=== PATIENT | female | born 1945 | race Caucasian/White ===

== ENCOUNTER 2017-09-29 19:43 | Inpatient (IN) | payer MEDICARE, OTHER ==
[2017-09-29] MEDS ORDERED: MORPHINE SULFATE 2 MG/ML SYRINGE IVP STA ×2 (19:53→22:09)
[2017-09-29] MEDS ORDERED: SODIUM CHLORIDE 0.9% 1,000 ML IV STA ×2 (19:53)
[2017-09-29 20:26] LABS: HCT 31.3 % (34.0-46.0); HGB 10.3 gm/dL (11.4-16.0); MCH 30.6 pg (25.0-35.0); MCV 92.7 fL (80.0-100.0); Mean Platelet Volume 8.7; RBC 3.38 m/uL (3.80-5.40); WBC 13.4 k/uL (3.8-10.6)
--- NOTE | 2017-09-29 20:39 | XR ---
EXAMINATION TYPE: XR chest 2V DATE OF EXAM: 09/29/2017 COMPARISON: NONE HISTORY: Chest pain TECHNIQUE: Frontal and lateral views of the chest are obtained. FINDINGS: There is no heart failure nor confluent pneumonic infiltrate. There is pulmonary hyperinfl ation and flattening of the diaphragm. There are chest leads. Costophrenic angles are clear. IMPRESSION: No active cardiopulmonary disease. There is probably some COPD. Normal heart.
[2017-09-29 20:42] LABS: D-Dimer 0.37 mg/L FEU (<0.60); Partial Thromboplastin Time 22.3 sec (22.0-30.0); Prothrombin Time 9.7 sec (9.0-12.0)
[2017-09-29 20:43] LABS: ALT 82 U/L (9-52); AST 65 U/L (14-36); Albumin 4.2 g/dL (3.5-5.0); Alkaline Phosphatase 67 U/L (38-126); Anion Gap 11 mmol/L; Blood Urea Nitrogen 16 mg/dL (7-17); Calcium 9.3 mg/dL (8.4-10.2); Carbon Dioxide 22 mmol/L (22-30); Chloride 99 mmol/L (98-107); Creatine Kinase 65 U/L (30-135); Glucose 104 mg/dL (74-99); Magnesium 1.8 mg/dL (1.6-2.3); Potassium 4.4 mmol/L (3.5-5.1); Sodium 132 mmol/L (137-145); Total Bilirubin 0.5 mg/dL (0.2-1.3); Total Protein 6.3 g/dL (6.3-8.2)
[2017-09-29 20:54] LABS: Creatine Kinase MB 1.5 ng/mL (0.0-2.4); Troponin I <0.012 ng/mL (0.000-0.034)
--- NOTE | 2017-09-29 21:56 | ED ---
Chest Pain HPI - General Chief Complaint: Chest Pain Stated Complaint: Chest Pain Time Seen by Provider: 09/29/17 19:45 Source: patient Mode of arrival: EMS - History of Present Illness Initial Comments: 72 years old and is boric had a pain in her right arm pain traveled from right to the left arm morphine she has a no compromise in the motor function or sensory function seems it's side deep sort of discomfort she is concerned about her heart and also travels down towards the back, she does have a history of lymphoma she was seen by Dr. Singer and then numb she was seen her car monocytes in [place] she broke out in cold sweats when she felt she was short winded and now I deep breaths caused her quite a bit of discomfort it started about 5:30 PM. Denies any headaches no neck stiffness no weakness of the arms or the legs consistent with the CVA no sensory deficits noted abdominal pain no frequency urgency dysuria - Related Data Home Medications Medication Instructions Recorded Confirmed ALPRAZolam [Xanax] 0.25 mg PO HS PRN 09/29/17 09/29/17 Atenolol [Tenormin] 12.5 mg PO QAM 09/29/17 09/29/17 Cetirizine HCl [Zyrtec] 20 mg PO DAILY 09/29/17 09/29/17 Ibrutinib/Placebo 140mg/0mg 4 cap PO DAILY 09/29/17 09/29/17 Loperamide HCl [Imodium A-D] 2 mg PO QAM 09/29/17 09/29/17 Melatonin 5 mg PO HS PRN 09/29/17 09/29/17 Multivitamins, Thera [Multivitamin 1 tab PO DAILY 09/29/17 09/29/17 (formulary)] PARoxetine [Paxil] 10 mg PO HS 09/29/17 09/29/17 [place]'s Wort 150 mg PO DAILY 09/29/17 09/29/17 Zolpidem [Ambien] 5 mg PO HS 09/29/17 09/29/17 diphenhydrAMINE HCL [Benadryl] 25 - 50 mg PO HS PRN 09/29/17 09/29/17 hydrOXYzine HCL 10 mg PO HS 09/29/17 09/29/17 Allergies Allergy/AdvReac Type Severity Reaction Status Date / Time latex Allergy Severe Swelling Verified 09/29/17 20:51 Review of Systems ROS Statement: Those systems with pertinent positive or pertinent negative responses have been documented in the HPI. ROS Other: All systems not noted in ROS Statement are negative. EKG Findings - EKG Comments: EKG Findings:: EKG is normal sinus ventricular rate is 84 NH interval is 128 QRS duration is 100 QT/QTc is 376/444 review of this EKG does not reveal any ST elevation or ST depression Past Medical History Additional Past Medical History / Comment(s): lymphoma Past Psychological History: No Psychological Hx Reported General Exam - General Exam Comments Initial Comments: General: The patient is awake and alert, in no distress, and does not appear acutely ill. Skin: Skin is warm and dry and no rashes or lesions are noted. Eye: Pupils are equal, round and reactive to light, extra-ocular movements are intact; there is normal conjunctiva bilaterally. Ears, nose, mouth and throat: There are moist mucous membranes and no oral lesions. Neck: The neck is supple, there is no tenderness or JVD. Cardiovascular: There is a regular rate and rhythm. No murmur, rub or gallop is appreciated. Respiratory: To auscultation bilateral, no wheezing no rhonchi no distress respiratory whelan noticed Gastrointestinal: Soft, non-distended, non-tender abdomen without masses or organomegaly noted. There is no rebound or guarding present. Bowel sounds are unremarkable. Back: There is no tenderness to palpation in the midline. There is no obvious deformity. Musculoskeletal: Normal ROM, no tenderness, There is no pedal edema. There is no calf tenderness or swelling. No cords were appreciated. No focal deficit noticed at all Neurological: CN II-XII intact, Cranial nerves III through XII are intact. There are no obvious motor or sensory deficits. Coordination appears grossly intact. Speech is normal. Psychiatric: Cooperative, appropriate mood & affect, normal judgment. Course Vital Signs 09/29/17 09/29/17 19:50 21:39 Temperature 98.0 F Pulse Rate 79 77 Respiratory 18 18 Rate Blood Pressure 118/56 129/70 O2 Sat by Pulse 99 99 Oximetry Upon reassessment white count is 13.4, BS metabolic panel is unremarkable troponin EKG chest x-ray are within normal range d-dimer is unremarkable as well considering she 72 years old and now discomfort in the both arms and the number in the hospital observation and cardiology consult also will consult Dr. Singer who initially diagnosed her with the lymphoma she was concerned that lymphoma may be coming back Disposition Clinical Impression: Chest pain Disposition: ADMITTED IP TO THIS HOSP Condition: Good Referrals: Malathi Leon MD [Primary Care Provider] - 1-2 days
[2017-09-29] MEDS ORDERED: NITROGLYCERIN SL TABS 0.4 MG TAB SUBLINGUAL PRN (22:02)
[2017-09-29] MEDS ORDERED: MELATONIN 5 MG TABLET PO PRN (22:07)
[2017-09-30] MEDS: ONDANSETRON 4 MG/2 ML VIAL IVP PRN ×2 (00:26→12:25)
[2017-09-30] MEDS: MORPHINE SULFATE 2 MG/ML SYRINGE IVP PRN ×3 (00:59→20:26)
[2017-09-30 02:21] LABS: Cholesterol 153 mg/dL (<200); HDL Cholesterol 55 mg/dL (40-60); LDL Cholesterol,Calculated 84 mg/dL (0-99); Triglycerides 71 mg/dL (<150)
[2017-09-30 02:26] LABS: Creatine Kinase 57 U/L (30-135)
[2017-09-30 02:39] LABS: Creatine Kinase MB 1.7 ng/mL (0.0-2.4); Troponin I <0.012 ng/mL (0.000-0.034)
[2017-09-30] MEDS: ALPRAZolam 0.25 MG TAB PO PRN (03:38)
[2017-09-30 08:22] LABS: Band Neutrophils % 5 %; Eosinophils # (M) 0.13 k/uL (0-0.7); Lymphocytes # (M) 1.07 k/uL (1.0-4.8); Metamyelocytes # (M) 0.54 k/uL (0); Metamyelocytes % 4 %; Monocytes # (M) 0.67 k/uL (0-1.0); Myelocytes % 3 %; Neutrophils % (M) 76 %; Nucleated Red Blood Cells 0 /100 WBC (0-0); Total Cells Counted 200
[2017-09-30 08:28] LABS: Anisocytosis (M) Present; Poikilocytosis (M) Present
[2017-09-30 08:29] LABS: Platelet Count 82 k/uL (150-450); Toxic Granulation Present; Toxic Vacuolation Present
[2017-09-30 08:46] LABS: Creatine Kinase 56 U/L (30-135)
[2017-09-30 09:00] LABS: Creatine Kinase MB 1.8 ng/mL (0.0-2.4); Troponin I <0.012 ng/mL (0.000-0.034)
[2017-09-30] MEDS ORDERED: ASPIRIN 325 MG TAB PO SCH (09:00)
[2017-09-30] MEDS ORDERED: LOPERAMIDE 2 MG CAP PO SCH (09:00)
[2017-09-30] MEDS ORDERED: ST JOHN S WORT 150 MG PO SCH (09:00)
--- NOTE | 2017-09-30 10:58 | CONS ---
CONSULTATION CHIEF COMPLAINT: Bilateral arm pain. This is a 72-year-old lady with history of hypertension with history of cardiac arrhythmia for which she takes Tenormin, has a history of lymphoma and comes into hospital complaining of bilateral arm pain that is there at rest, gets worse when she moves her arm and she also has had episodes of diarrhea and she states that she also had some nausea and vomiting. She denies any chest pain. Her EKG does not reveal acute ischemic changes. Three sets of cardiac enzymes are negative. D-dimer is normal. Hemoglobin is low. White cell count is elevated. Platelet count is low. At the time of my evaluation, she appears comfortable at rest and is hemodynamically stable. PAST MEDICAL HISTORY: Significant for cardiac arrhythmia, lymphoma, arthritis. CURRENT MEDICATIONS: Include Benadryl, Ambien, Paxil, multivitamins, Imodium, Zyrtec, Tenormin and Xanax. ALLERGIC: LATEX. FAMILY HISTORY: Negative for premature coronary artery disease. SOCIAL HISTORY: Negative for current smoking, EtOH abuse, or drug abuse. REVIEW OF SYSTEMS: HEENT is unremarkable. CARDIAC: As described above. RESPIRATORY: As described above. GI: Negative. GENITOURINARY: Negative. ALLERGY/IMMUNOLOGY: Negative. SKIN: Negative. MUSCULOSKELETAL: Significant for arthritis. PSYCHOSOCIAL: Negative. ENDOCRINE: Negative. DERMATOLOGICAL: Negative. CONSTITUTIONAL: Negative. ONCOLOGICAL: Negative. HEMATOLOGIC: Significant for lymphoma. Rest of the system review is not relevant. EXAM: She is comfortable at rest. Vital signs are stable. There is no jugular venous distention. Carotid upstroke is normal. There is no bruit. Chest exam reveals good air entry bilaterally. Heart exam reveals first and second heart sounds. No gallop. No murmur. Abdomen is soft, nontender. Exam of extremities did not reveal any edema. Peripheral pulses are felt. LABS: As described above. EKGs as above. ASSESSMENT: Bilateral arm pain of unclear etiology in a patient with multiple other problems including nausea, vomiting and diarrhea. The patient does not have any hypokalemia, but she has anemia and has thrombocytopenia. Renal functions are normal. Myocardial infarction is ruled out. EKG does not reveal ischemic changes. I am going to obtain an echocardiogram to assess her wall motion LV function and once her nausea and vomiting subsides, we may consider doing a stress test on her. Thank you for allowing us to participate in this pleasant lady. MMODL / IJN: [id number] /
[2017-09-30] MEDS: MULTIVITAMINS, THERA 1 EACH TAB PO SCH (11:45)
[2017-09-30] MEDS: LORATADINE 10 MG TAB PO SCH (11:45)
[2017-09-30] MEDS: [UNRECOGNIZED DRUG - OTHER] PO SCH (11:46)
[2017-09-30] MEDS: KETOROLAC 30 MG/ML 1 ML VIAL IVP PRN ×2 (11:46→18:21)
[2017-09-30] MEDS: ATENOLOL 12.5 MG TAB PO SCH (11:46)
--- NOTE | 2017-09-30 11:57 | ECHOF ---
Referral Reason:arm pain MEASUREMENTS -------- HEIGHT: 162.6 cm WEIGHT: 66.2 kg BP: 121/59 RVIDd: 1.9 cm (< 3.3) IVSd: 0.8 cm (0.6 - 1.1) LVIDd: 4.9 cm (3.9 - 5.3) LVPWd: 0.8 cm (0.6 - 1.1) IVSs: 1.2 cm LVIDs: 2.7 cm LVPWs: 1.1 cm LAESV Index (A-L): 30.40 ml/m Ao Diam: 3.4 cm (2.0 - 3.7) AV Cusp: 1.9 cm (1.5 - 2.6) LA Diam: 2.5 cm (2.7 - 3.8) EPSS: 1.0 cm MV E Pj: 0.75 m/s MV DecT: 269 ms MV A Pj: 0.64 m/s MV E/A Ratio: 1.18 AR PHT: 446 ms RAP: 10.00 mmHg RVSP: 57.62 mmHg MV EF SLOPE: 130.90 mm/s (70 - 150) MV EXCURSION: 1.69 cm (> 18.000) FINDINGS -------- Sinus rhythm. This was a technically adequate study. The left ventricular size is normal. Left ventricular wall thickness is normal. Overall left vent ricular systolic function is normal with, an EF between 55 - 60 %. The right ventricle is normal in size and function. LA is midly dilated 29-33ml/m2. RA appears enlarged. There is mild aortic valve sclerosis. There is moderate aortic regurgitation. There is no evidenc e of aortic stenosis. Mild mitral annular calcification present. There is trace to mild mitral regurgitation. [id number] tricuspid regurgitation present. There is moderate pulmonary hypertension. The r ight ventricular systolic pressure, as measured by Doppler, is 57.62mmHg. The pulmonic valve was not well visualized. The aortic root size is normal. The IVC is dilated with normal collapse. There is no pericardial effusion. CONCLUSIONS -------- 1. Sinus rhythm. 2. This was a technically adequate study. 3. The left ventricular size is normal. 4. Left ventricular wall thickness is normal. 5. Overall left ventricular systolic function is normal with, an EF between 55 - 60 %. 6. LA is midly dilated 29-33ml/m2. 7. RA appears enlarged. 8. There is mild aortic valve sclerosis. 9. There is moderate aortic regurgitation. 10. Mild mitral annular calcification present. 11. There is trace to mild mitral regurgitation. 12. [id number] tricuspid regurgitation present. 13. The right ventricular systolic pressure, as measured by Doppler, is 57.62mmHg. 14. The pulmonic valve was not well visualized. 15. The aortic root size is normal. 16. The IVC is dilated with normal collapse. 17. There is no pericardial effusion. GUITAR REPAIR TECHNICIAN: Terrance Brasher RDCS
--- NOTE | 2017-09-30 12:33 | P.HPIM ---
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 She came in with symptoms of bilateral arm pain generalized weakness flulike symptoms, nausea vomiting diarrhea. One of the side effects of this medication being diarrhea. Patient is on Imodium for diarrhea. We advised Imodium will be temporally help will obtain a C. diff testing. Patient appears to have gastroenteritis. Although patient was admitted to rule out a concurrent syndromes because of which cardiology evaluated the patient echo cardiac exam was opted which is essentially within normal limits and cardiology cleared her for discharge from their perspective. Patient was comparing of severe body aches bilateral arm pain. Patient did not tolerate morphine that was a given in ER. Morphine will be discussed in patient will return started on Toradol along with the GI prophylaxis. Review of Systems REVIEW OF SYSTEMS: CONSTITUTIONAL: No fever, HEENT: No recent visual problems or hearing problems. Denied any sore throat. CARDIOVASCULAR: No chest pain, orthopnea, PND, no palpitations, no syncope. PULMONARY: No shortness of breath, no cough, no hemoptysis. GASTROINTESTINAL: no abdominal pain. Normoactive bowel sounds. NEUROLOGICAL: No headaches, no weakness, no numbness. HEMATOLOGICAL: Denies any bleeding or petechiae. GENITOURINARY: Denies any burning micturition, frequency, or urgency. MUSCULOSKELETAL/RHEUMATOLOGICAL: Denies any joint pain, swelling, or any muscle pain. ENDOCRINE: Denies any polyuria or polydipsia. The rest of the 14-point review of systems is negative. Past Medical History Past Medical History: Chest Pain / Angina Additional Past Medical History / Comment(s): lymphoma, tachycardia History of Any Multi-Drug Resistant Organisms: None Reported Past Surgical History: No Surgical Hx Reported Past Anesthesia/Blood Transfusion Reactions: No Reported Reaction Smoking Status: Never smoker - Past Family History Mother Family Medical History: Cancer, Chest Pain / Angina Additional Family Medical History / Comment(s): breast cancer Father Family Medical History: Cancer, Coronary Artery Disease (CAD) Medications and Allergies Home Medications Medication Instructions Recorded Confirmed Type ALPRAZolam [Xanax] 0.25 mg PO HS PRN 09/29/17 09/29/17 History Atenolol [Tenormin] 12.5 mg PO QAM 09/29/17 09/29/17 History Cetirizine HCl [Zyrtec] 20 mg PO DAILY 09/29/17 09/29/17 History Ibrutinib/Placebo 140mg/0mg 4 cap PO DAILY 09/29/17 09/29/17 History Loperamide HCl [Imodium A-D] 2 mg PO QAM 09/29/17 09/29/17 History Melatonin 5 mg PO HS PRN 09/29/17 09/29/17 History Multivitamins, Thera [Multivitamin 1 tab PO DAILY 09/29/17 09/29/17 History (formulary)] PARoxetine [Paxil] 10 mg PO HS 09/29/17 09/29/17 History [place]'s Wort 150 mg PO DAILY 09/29/17 09/29/17 History Zolpidem [Ambien] 5 mg PO HS 09/29/17 09/29/17 History diphenhydrAMINE HCL [Benadryl] 25 - 50 mg PO HS PRN 09/29/17 09/29/17 History hydrOXYzine HCL 10 mg PO HS 09/29/17 09/29/17 History Allergies Allergy/AdvReac Type Severity Reaction Status Date / Time latex Allergy Severe Swelling Verified 09/29/17 20:51 Physical Exam Vitals: Vital Signs Temp Pulse Pulse Resp BP BP Pulse Ox 09/30/17 08:45 95 09/30/17 08:00 97.7 F 79 16 121/59 95 09/30/17 04:00 97.9 F 87 18 119/83 100 09/29/17 23:30 84 18 09/29/17 23:15 98.2 F 84 18 144/78 94 L 09/29/17 23:01 83 18 137/68 97 09/29/17 21:39 77 18 129/70 99 09/29/17 19:50 98.0 F 79 18 118/56 99 Intake and Output 09/29/17 09/30/17 09/30/17 22:59 06:59 14:59 Other: Voiding Method Toilet Toilet # Voids 2 # Bowel Movements 1 Weight 63.503 kg 66.3 kg PHYSICAL EXAMINATION: GENERAL: The patient is alert and oriented x3, not in any acute distress. Well developed, well nourished. Patient appears to be tired fatigued HEENT: Pupils are round and equally reacting to light. EOMI. No scleral icterus. No conjunctival pallor. Normocephalic, atraumatic. No pharyngeal erythema. No thyromegaly. CARDIOVASCULAR: S1 and S2 present. No murmurs, rubs, or gallops. PULMONARY: Chest is clear to auscultation, no wheezing or crackles. ABDOMEN: Soft, nontender, nondistended, normoactive bowel sounds. No palpable organomegaly. MUSCULOSKELETAL: No joint swelling or deformity. EXTREMITIES: No cyanosis, clubbing, or pedal edema. NEUROLOGICAL: Gross neurological examination did not reveal any focal deficits. SKIN: No rashes. Results CBC & Chem 7: 09/29/17 20:09 09/29/17 20:09 Labs: Abnormal Lab Results - Last 24 Hours (Table) 09/29/17 09/29/17 Range/Units 20:09 20:09 WBC 13.4 H (3.8-10.6) k/uL RBC 3.38 L (3.80-5.40) m/uL Hgb 10.3 L (11.4-16.0) gm/dL Hct 31.3 L (34.0-46.0) % Plt Count 82 L (150-450) k/uL Neutrophils # (Manual) 10.80 H (1.3-7.7) k/uL Metamyelocytes # (Man) 0.54 H (0) k/uL Myelocytes # (Manual) 0.40 H (0) k/uL Sodium 132 L (137-145) mmol/L Glucose 104 H (74-99) mg/dL AST 65 H (14-36) U/L ALT 82 H (9-52) U/L Thrombosis Risk Factor Assmnt - Choose All That Apply Any of the Below Risk Factors Present?: No Other Risk Factors: Yes Each Risk Factor Represents 2 Points: Age 61-74 years Other congenital or acquired thrombophilia - If yes, enter type in comment: No Thrombosis Risk Factor Assessment Total Risk Factor Score: 2 Thrombosis Risk Factor Assessment Level: Low Risk Assessment and Plan Plan: -Generalized body aches nausea vomiting and diarrhea: Possibly secondary to gastroenteritis will obtain C. diff testing after which patient will be resumed back on Imodium. Patient is on biologic agent because of which I do have concerns of bacteremia and sepsis because of which I'll obtain blood cultures. Although during this time it severe that patient has influenza considering her symptom bowel do influenza A and B PCR -History of mantle cell lymphoma on biologic agents, if patient continues to have symptoms of diarrhea and body aches, left contact Dr. Mcgowan oncologist regarding this new biologic agents and possible side effects which probably are reportable. -Hyponatremia probably hypervolemic hyponatremia patient is on IV fluids and recheck basic metabolic profile tomorrow area -Depression continue with Paxil -Hypertension
[2017-09-30] MEDS: FAMOTIDINE 20 MG TAB PO SCH (13:10)
[2017-10-01] MEDS: MORPHINE SULFATE 2 MG/ML SYRINGE IVP PRN (00:03)
[2017-10-01 01:02] VITALS: RESP 18
[2017-10-01 05:53] LABS: HCT 31.8 % (34.0-46.0); HGB 10.7 gm/dL (11.4-16.0); MCHC 33.7 g/dL (31.0-37.0); MCV 92.1 fL (80.0-100.0); Mean Platelet Volume 8.9; RBC 3.46 m/uL (3.80-5.40)
[2017-10-01 05:55] LABS: Platelet Count 84 k/uL (150-450)
[2017-10-01 06:26] LABS: Anion Gap 11 mmol/L; Blood Urea Nitrogen 12 mg/dL (7-17); Carbon Dioxide 21 mmol/L (22-30); Chloride 98 mmol/L (98-107); Glucose 82 mg/dL (74-99); Potassium 4.7 mmol/L (3.5-5.1); Sodium 130 mmol/L (137-145)
--- NOTE | 2017-10-01 07:36 | P.PN ---
Subjective Progress Note Date: 10/01/17 Principal diagnosis: Bilateral arm pain This is a pleasant 72-year-old female patient who presented to the hospital complaining of nausea and vomiting, diarrhea, and we get involved in her care because of bilateral arm discomfort. The patient did not have any symptoms of chest pain or chest discomfort, shortness of breath, dizziness or lightheadedness, or syncope. No documented history of coronary artery disease and the patient never seen a cascade operator in the past. She was ruled out for acute coronary event. 3 sets of cardiac enzymes were checked and came in to be unremarkable. The EKG did not show any ischemic changes. The patient did undergo an echocardiogram and that revealed normal LV function with moderate aortic insufficiency and no evidence of pericardial effusion. Please note that the patient does have lymphoma and she is in remission at this point according to her. Objective - Vital Signs Vital signs: Vital Signs Temp 97.5 F L 09/30/17 21:30 Pulse 77 10/01/17 04:00 Resp 18 10/01/17 04:00 BP 135/58 09/30/17 21:30 Pulse Ox 95 09/30/17 21:30 Intake & Output 09/30/17 10/01/17 10/01/17 18:59 06:59 18:59 Intake Total 118 Balance 118 Weight 66.3 kg Intake: Oral 118 Other: Voiding Method Toilet Toilet # Voids 2 1 - Constitutional General appearance: Present: no acute distress - Respiratory Respiratory: bilateral: CTA - Cardiovascular Rhythm: regular Heart sounds: normal: S1, S2 - Labs CBC & Chem 7: 10/01/17 05:29 10/01/17 05:29 Labs: Abnormal Lab Results - Last 24 Hours (Table) 09/29/17 10/01/17 10/01/17 Range/Units 20:09 05:29 05:29 WBC 23.0 H (3.8-10.6) k/uL RBC 3.46 L (3.80-5.40) m/uL Hgb 10.7 L (11.4-16.0) gm/dL Hct 31.8 L (34.0-46.0) % Plt Count 82 L 84 L (150-450) k/uL Neutrophils # (Manual) 10.80 H (1.3-7.7) k/uL Metamyelocytes # (Man) 0.54 H (0) k/uL Myelocytes # (Manual) 0.40 H (0) k/uL Sodium 130 L (137-145) mmol/L Carbon Dioxide 21 L (22-30) mmol/L Assessment and Plan Assessment: Assessment #1 bilateral arm discomfort #2 nausea/vomiting/diarrhea #3 history of lymphoma currently in remission #4 family history of coronary artery disease Plan #1 the patient was ruled out for acute coronary event #2 the echocardiogram showed normal LV function with moderate aortic insufficiency #3 once the patient's nausea/vomiting/diarrhea improved she does need to have a stress test probably as an outpatient Thank you for allowing us participate in her care
[2017-10-01] MEDS: FAMOTIDINE 20 MG TAB PO SCH ×3 (08:14→21:30)
[2017-10-01] MEDS: hydrOXYzine HCL 10 MG TAB PO SCH ×2 (08:14→21:30)
[2017-10-01] MEDS: PARoxetine 10 MG TAB PO SCH ×2 (08:14→21:30)
[2017-10-01] MEDS: ZOLPIDEM 5 MG TAB PO SCH ×2 (08:14→21:31)
[2017-10-01] MEDS: LORATADINE 10 MG TAB PO SCH (09:10)
[2017-10-01] MEDS: MULTIVITAMINS, THERA 1 EACH TAB PO SCH (09:10)
[2017-10-01] MEDS: ATENOLOL 12.5 MG TAB PO SCH (09:11)
[2017-10-01] MEDS: KETOROLAC 30 MG/ML 1 ML VIAL IVP PRN ×3 (09:11→21:29)
[2017-10-01] MEDS: [UNRECOGNIZED DRUG - OTHER] PO SCH (09:13)
[2017-10-01] MEDS: ACETAMINOPHEN TAB 325 MG TAB PO PRN (12:53)
[2017-10-01] MEDS ORDERED: SODIUM CHLORIDE 0.9% 1,000 ML IV SCH (13:30)
--- NOTE | 2017-10-01 16:13 | P.PN ---
Subjective 72-year-old female admitted for viral gastroenteritis patient generalized fatigue significantly improved Generalized body aches improved her diarrhea improved. Although patient leukocytosis has worsened which is expected to improve by tomorrow. Patient is hyponatremic because of which patient will be started back on IV fluids which were discontinued. We'll repeat the CBC and basic metabolic profile tomorrow we will monitor her overnight. Constitutional: Denied any fatigue denied any fever. Cardio vascular: denied any chest pain, palpitations Gastrointestinal denied any nausea vomiting Pulmonary: Denied any shortness of breath cough Neurologic denied any new focal deficits Objective - Vital Signs Vital signs: Vital Signs Temp 98.1 F 10/01/17 16:00 Pulse 72 10/01/17 16:00 Resp 18 10/01/17 16:00 BP 156/72 10/01/17 16:00 Pulse Ox 96 10/01/17 16:00 Intake & Output 09/30/17 10/01/17 10/01/17 18:59 06:59 18:59 Intake Total 118 680 Balance 118 680 Weight 66.3 kg Intake: Oral 118 480 Other 200 Other: Voiding Method Toilet Toilet Toilet # Voids 2 1 - Exam PHYSICAL EXAMINATION: GENERAL: The patient is alert and oriented x3, not in any acute distress. Well developed, well nourished. HEENT: Pupils are round and equally reacting to light. EOMI. No scleral icterus. No conjunctival pallor. Normocephalic, atraumatic. No pharyngeal erythema. No thyromegaly. CARDIOVASCULAR: S1 and S2 present. No murmurs, rubs, or gallops. PULMONARY: Chest is clear to auscultation, no wheezing or crackles. ABDOMEN: Soft, nontender, nondistended, normoactive bowel sounds. No palpable organomegaly. MUSCULOSKELETAL: No joint swelling or deformity. EXTREMITIES: No cyanosis, clubbing, or pedal edema. NEUROLOGICAL: Gross neurological examination did not reveal any focal deficits. SKIN: No rashes. - Labs CBC & Chem 7: 10/01/17 05:29 10/01/17 05:29 Labs: Abnormal Lab Results - Last 24 Hours (Table) 10/01/17 10/01/17 Range/Units 05:29 05:29 WBC 23.0 H (3.8-10.6) k/uL RBC 3.46 L (3.80-5.40) m/uL Hgb 10.7 L (11.4-16.0) gm/dL Hct 31.8 L (34.0-46.0) % Plt Count 84 L (150-450) k/uL Sodium 130 L (137-145) mmol/L Carbon Dioxide 21 L (22-30) mmol/L Assessment and Plan Plan: -Generalized body aches nausea vomiting and diarrhea: Possibly secondary to gastroenteritis influenza testing is negative -History of mantle cell lymphoma on biologic agents. -Hyponatremia secondary diarrhea patient will be restarted back on IV fluids and repeat basic metabolic profile tomorrow -Leukocytosis: Secondary to viral gastroenteritis expected to improve part of the leukocytosis probably related to her lymphoma itself. -Depression continue with Paxil -Hypertension
[2017-10-01] MEDS: ALPRAZolam 0.25 MG TAB PO PRN (21:31)
[2017-10-02] MEDS: ACETAMINOPHEN TAB 325 MG TAB PO PRN (07:49)
[2017-10-02] MEDS: LORATADINE 10 MG TAB PO SCH (07:50)
[2017-10-02] MEDS: FAMOTIDINE 20 MG TAB PO SCH (07:50)
[2017-10-02] MEDS: ATENOLOL 12.5 MG TAB PO SCH (07:50)
[2017-10-02] MEDS: MULTIVITAMINS, THERA 1 EACH TAB PO SCH (07:51)
[2017-10-02 08:12] LABS: HCT 31.3 % (34.0-46.0); HGB 10.4 gm/dL (11.4-16.0); MCHC 33.2 g/dL (31.0-37.0); MCV 93.3 fL (80.0-100.0); Mean Platelet Volume 9.1; Platelet Count 66 k/uL (150-450); RBC 3.36 m/uL (3.80-5.40); RDW 13.3 % (11.5-15.5)
[2017-10-02 08:13] LABS: Anion Gap 9 mmol/L; Blood Urea Nitrogen 10 mg/dL (7-17); Calcium 9.1 mg/dL (8.4-10.2); Carbon Dioxide 27 mmol/L (22-30); Chloride 100 mmol/L (98-107); Glucose 97 mg/dL (74-99); Potassium 4.5 mmol/L (3.5-5.1); Sodium 136 mmol/L (137-145)
[2017-10-02 08:22] LABS: WBC 28.1 k/uL (3.8-10.6)
[2017-10-02] MEDS: KETOROLAC 30 MG/ML 1 ML VIAL IVP PRN (10:14)
[2017-10-02 14:46] LABS: HGB 10.5 gm/dL (11.4-16.0); MCH 31.2 pg (25.0-35.0); MCHC 33.9 g/dL (31.0-37.0); MCV 91.9 fL (80.0-100.0); Mean Platelet Volume 8.8; Platelet Count 64 k/uL (150-450); RBC 3.37 m/uL (3.80-5.40); RDW 13.3 % (11.5-15.5)
[2017-10-02 14:58] LABS: Lymphocytes # (A) 5.6 k/uL (1.0-4.8)
[2017-10-02 15:10] LABS: Band Neutrophils % 4 %; Blast Cells # (M) 2.16 k/uL (0); Lymphocytes # (M) 5.28 k/uL (1.0-4.8); Metamyelocytes % 5 %; Monocytes # (M) 2.64 k/uL (0-1.0); Myelocytes # (M) 0.72 k/uL (0); Myelocytes % 3 %; Neutrophils % (M) 48 %; Nucleated Red Blood Cells 0 /100 WBC (0-0); Total Cells Counted 200
[2017-10-02 15:11] LABS: Poikilocytosis (M) Present
[2017-10-02 15:35] VITALS: BP 173/81; PULSE 80; TEMP 97.9
--- NOTE | 2017-10-02 16:29 | P.DS ---
Providers Date of admission: 10/02/17 07:50 Attending physician: Arnold Serrano Consults: 09/29/17 22:02 Consult Physician Urgent Consulting Provider: Saul Hopper Consult Reason/Comments: chestpain, arm pain Do you want consulting provider notified?: Yes Primary care physician: Malathi Leon [facility] Course: 72-year-old female admitted for viral gastroenteritis patient generalized fatigue significantly improved Generalized body aches improved her diarrhea improved. Although patient leukocytosis has worsened which is expected to improve by tomorrow. Patient is hyponatremic because of which patient will be started back on IV fluids which were discontinued. We'll repeat the CBC and basic metabolic profile tomorrow we will monitor her overnight. \ 10/02/2017 Patient right blood cell count went up as high as 28,000 today because of which I requested the lab and pathology department to do differential it appears like patient has significant lymphocytosis and lymphoma cells along with significant cellular atypia and immature cells. This is probably mantle cell lymphoma as requested the patient to follow up with her socially responsible investment adviser and make an earlier appointment and make her aware of these findings. Patient will follow Dr. Leon as an outpatient. Her diarrhea improved. Patient gastroenteritis improved still complaining of pain in the left arm patient was ruled out acute current syndromes. Patient white blood cell count has come down from 28,000-24, 000. Hyponatremia improved with IV fluids. Her generalized body aches resolved PHYSICAL EXAMINATION: GENERAL: The patient is alert and oriented x3, not in any acute distress. Well developed, well nourished. HEENT: Pupils are round and equally reacting to light. EOMI. No scleral icterus. No conjunctival pallor. Normocephalic, atraumatic. No pharyngeal erythema. No thyromegaly. CARDIOVASCULAR: S1 and S2 present. No murmurs, rubs, or gallops. PULMONARY: Chest is clear to auscultation, no wheezing or crackles. ABDOMEN: Soft, nontender, nondistended, normoactive bowel sounds. No palpable organomegaly. MUSCULOSKELETAL: No joint swelling or deformity. EXTREMITIES: No cyanosis, clubbing, or pedal edema. NEUROLOGICAL: Gross neurological examination did not reveal any focal deficits. SKIN: No rashes. 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 -Hyponatremia secondary diarrhea improved with IV fluids -Leukocytosis: Secondary to mostly lymphoma with contribution from viral gastroenteritis differential and peripheral smear are still pending -Depression continue with Paxil -Hypertension Patient Condition at Discharge: Good Plan - Discharge Summary Discharge Rx Participant: No New Discharge Prescriptions: New Etodolac [Lodine] 400 mg PO BID #14 tab Ranitidine HCl [Zantac] 150 mg PO BID #30 tab No Action diphenhydrAMINE HCL [Benadryl] 25 - 50 mg PO HS PRN PRN Reason: Insomnia [place]'s Wort 150 mg PO DAILY Multivitamins, Thera [Multivitamin (formulary)] 1 tab PO DAILY Melatonin 5 mg PO HS PRN PRN Reason: Insomnia Cetirizine HCl [Zyrtec] 20 mg PO DAILY Zolpidem [Ambien] 5 mg PO HS Loperamide HCl [Imodium A-D] 2 mg PO QAM hydrOXYzine HCL 10 mg PO HS Atenolol [Tenormin] 12.5 mg PO QAM PARoxetine [Paxil] 10 mg PO HS ALPRAZolam [Xanax] 0.25 mg PO HS PRN PRN Reason: Anxiety Ibrutinib/Placebo 140mg/0mg 4 cap PO DAILY Discharge Medication List ALPRAZolam [Xanax] 0.25 mg PO HS PRN 09/29/17 [History] Atenolol [Tenormin] 12.5 mg PO QAM 09/29/17 [History] Cetirizine HCl [Zyrtec] 20 mg PO DAILY 09/29/17 [History] Ibrutinib/Placebo 140mg/0mg 4 cap PO DAILY 09/29/17 [History] Loperamide HCl [Imodium A-D] 2 mg PO QAM 09/29/17 [History] Melatonin 5 mg PO HS PRN 09/29/17 [History] Multivitamins, Thera [Multivitamin (formulary)] 1 tab PO DAILY 09/29/17 [History ] PARoxetine [Paxil] 10 mg PO HS 09/29/17 [History] Cheko's Wort 150 mg PO DAILY 09/29/17 [History] Zolpidem [Ambien] 5 mg PO HS 09/29/17 [History] diphenhydrAMINE HCL [Benadryl] 25 - 50 mg PO HS PRN 09/29/17 [History] hydrOXYzine HCL 10 mg PO HS 09/29/17 [History] Etodolac [Lodine] 400 mg PO BID #14 tab 10/02/17 [Rx] Ranitidine HCl [Zantac] 150 mg PO BID #30 tab 10/02/17 [Rx] Follow up Appointment(s)/Referral(s): Malathi Leon MD [Primary Care Provider] - 3 Days Discharge Disposition: HOME SELF-CARE
== END 2017-10-02 16:25 | disposition home or self-care (01) | DRG 556 ==
LOC: EC 19:43 → 6SEL 22:02 → 3OBS 09-30 14:48 → OBSVTOIN 10-02 07:50
PROVIDERS: ADMIT Hospitalist; ATTEND Hospitalist
DX: M79.602 Pain in left arm (principal); E87.1 Hypo-osmolality and hyponatremia; C83.10 Mantle cell lymphoma, unspecified site; A08.4 Viral intestinal infection, unspecified; D64.9 Anemia, unspecified; D69.6 Thrombocytopenia, unspecified; F32.9 Major depressive disorder, single episode, unspecified; I10 Essential (primary) hypertension; I35.1 Nonrheumatic aortic (valve) insufficiency; M79.601 Pain in right arm; Z91.040 Latex allergy status; Z79.899 Other long term (current) drug therapy; Z80.3 Family history of malignant neoplasm of breast; Z82.49 Family history of ischemic heart disease and other diseases of the circulatory system
CPT/HCPCS: 36415; 71046; 80048; 80053; 80061; 82550; 82553; 83735; 84484; 85025; 85027; 85379; 85610; 85730; 87040; 87502; 93005; 93306; 94760; 96361; 96374; 96376; 99285